=== PATIENT | female | born 1975 | race Caucasian/White ===

== ENCOUNTER 2024-10-06 23:22 | Emergency (ER) | payer BC ==
[2024-10-06 23:33] VITALS: BP 146/94; PULSE 60
[2024-10-07] MEDS: Cefdinir 300 MG Cap PO ONE (00:34)
== END 2024-10-07 00:35 | disposition home or self-care (01) ==
LOC: JD.ED 23:22
DX: N39.0 Urinary tract infection, site not specified (principal); E78.00 Pure hypercholesterolemia, unspecified; E03.9 Hypothyroidism, unspecified; Z86.16 Personal history of COVID-19; Z79.899 Other long term (current) drug therapy
CPT/HCPCS: 99283; A9270